=== PATIENT | female | born 1955 | race Caucasian/White ===

== ENCOUNTER 2016-09-05 17:20 | Emergency (ER) | payer OTHER ==
[~2016-09-05] VITALS: Ht 162.6 cm; Wt 83.3 kg
[~2016-09-05 17:20] MED LIST: ACTOS45 MG PO; COMBIVENT RESPIM4 GM IH; COMPAZINE10 MG PO; FOSINOPRIL SODI20 MG PO; LEXAPRO10 MG PO; LISINOPRIL20 MG PO; METFORMIN HCL1000 MG PO; MULTI-DAY VITA1 EACH PO; OSENI 12.5-151 EACH PO; PRILOSEC40 MG PO; REGLAN10 MG PO; ZOFRAN8 MG PO
[2016-09-05 17:59] LABS: HEMATOCRIT 35.6 % (36.0-46.0); MCH 29.5 PG (29.0-34.0); MCHC 32.9 G/DL (30.0-36.0); MCV 89.7 FL (83-99); MEAN PLAT.VOLUME 8.7 uM^3 (9.5-12.4); PLATELET COUNT 426 K/uL (156-360); RBC DIS.WIDTH-CV 13.7 % (11.8-14.6); RBC DIS.WIDTH-SD 43.5 % (39-53); RED BLOOD COUNT 3.97 M/uL (3.80-5.20); WHITE BLOOD COUNT 7.8 K/uL (4.1-10.2)
[2016-09-05 18:09] LABS: CHLORIDE 98 mEq/L (99-109); POTASSIUM 4.4 mEq/L (3.7-5.4); SODIUM 132 mEq/L (136-147)
[2016-09-05 18:10] LABS: GLUCOSE 267 mg/dL (70-99)
[2016-09-05 18:12] LABS: ANION GAP 14 MEQ/L (2-14)
[2016-09-05 18:14] LABS: GFR ESTIMATE (CALCULATED) 38 mL/min/
[2016-09-05] MEDS ORDERED: FERROUS SULFAT325 MG PO (18:15)
[2016-09-05] MEDS ORDERED: GLUCOPHAGE XR750 MG PO (18:15)
[2016-09-05 18:19] LABS: TROP-I INTERPRETATION NEGATIVE; TROPONIN-I < 0.01 ng/mL (0.0-0.30)
[2016-09-05 18:20] LABS: UREA NITROGEN (BUN) 18 mg/dL (9-23)
[2016-09-05 18:42] LABS: D-DIMER ELISA 2.21 mg/L FEU (< 0.57)
[2016-09-05 20:51] LABS: ADD MIUA? YES; BILIRUBIN NEGATIVE; BLOOD TRACE; COLOR YELLOW ((YELLOW)); GLUCOSE (STRIP) NEGATIVE; KETONES TRACE; LEUKOCYTES SMALL; NITRITE POSITIVE; PROTEIN (STRIP) TRACE; UROBILINOGEN 0.2 MG/DL (0.2-1.0)
[2016-09-05 21:28] LABS: SPECIFIC GRAVITY 1.062 (1.000-1.030)
[2016-09-05 21:48] LABS: CASTS PRESENT /LPF; RED BLOOD CELLS 0-5 /HPF (0-5)
[2016-09-05 21:49] LABS: BACTERIA 3+ /HPF; CRYSTALS NONE SEEN; EPITHELIAL CELLS 1+ /HPF; MUCUS NONE SEEN /LPF
[2016-09-05] MEDS ORDERED: CIPRO500 MG PO (22:04)
[2016-09-05 23:10] VITALS: BP 151/73
== END 2016-09-05 23:10 | disposition home or self-care (01) ==
LOC: EME 17:20
PROVIDERS: Emergency Medicine
DX: N39.0 Urinary tract infection, site not specified (principal); E86.0 Dehydration; E11.9 Type 2 diabetes mellitus without complications; J44.9 Chronic obstructive pulmonary disease, unspecified; I10 Essential (primary) hypertension; Z85.118 Personal history of other malignant neoplasm of bronchus and lung; Z87.891 Personal history of nicotine dependence
CPT/HCPCS: 71020; 71275; 74176; 80048; 81003; 84484; 85027; 85379; 87077; 87086; 87186; 93005; 99281; 99285; J0744; J7030

== ENCOUNTER 2016-09-19 12:17 | Observation (INO) | payer OTHER ==
[~2016-09-19] VITALS: Ht 162.6 cm; Wt 82.8 kg
[~2016-09-19 12:17] MED LIST changes: +CIPRO500 MG PO; +FERROUS SULFAT325 MG PO; +GLUCOPHAGE XR750 MG PO
[2016-09-19 13:34] LABS: CHLORIDE 98 mEq/L (99-109); POTASSIUM 4.4 mEq/L (3.7-5.4); SODIUM 133 mEq/L (136-147)
[2016-09-19 13:36] LABS: GLUCOSE 248 mg/dL (70-99); HEMATOCRIT 34.7 % (36.0-46.0); MCH 28.8 PG (29.0-34.0); MCHC 32.9 G/DL (30.0-36.0); MCV 87.6 FL (83-99); MEAN PLAT.VOLUME 9.2 uM^3 (9.5-12.4); PLATELET COUNT 394 K/uL (156-360); RBC DIS.WIDTH-CV 13.9 % (11.8-14.6); RBC DIS.WIDTH-SD 42.9 % (39-53); RED BLOOD COUNT 3.96 M/uL (3.80-5.20); WHITE BLOOD COUNT 9.6 K/uL (4.1-10.2)
[2016-09-19 13:37] LABS: ANION GAP 11 MEQ/L (2-14)
[2016-09-19 13:38] LABS: TOTAL BILIRUBIN 0.6 mg/dL (0.0-1.0)
[2016-09-19 13:40] LABS: ALKALINE PHOSPHATASE 72 IU/L (3-129); GFR ESTIMATE (CALCULATED) 44 mL/min/
[2016-09-19 13:41] LABS: UREA NITROGEN (BUN) 19 mg/dL (9-23)
[2016-09-19 14:32] LABS: LIPASE 40 U/L (1.0-51.0)
[2016-09-19] MEDS ORDERED: LEXAPRO20 MG PO (16:51)
[2016-09-19] MEDS ORDERED: DAILY VITAMIN1 EAC4 PO (16:52)
[2016-09-19] MEDS ORDERED: COMBIVENT RESPIM4 GM IH (16:52)
[2016-09-19 18:47] LABS: ADD MIUA? YES; BILIRUBIN NEGATIVE; BLOOD SMALL; COLOR YELLOW ((YELLOW)); GLUCOSE (STRIP) NEGATIVE; KETONES 5; LEUKOCYTES TRACE; NITRITE NEGATIVE; PROTEIN (STRIP) NEGATIVE; UROBILINOGEN 0.2 MG/DL (0.2-1.0)
[2016-09-19 18:56] LABS: BACTERIA NONE SEEN /HPF; EPITHELIAL CELLS RARE /HPF; HYALINE CASTS 0-5 /LPF; MUCUS NONE SEEN /LPF; RED BLOOD CELLS 0-5 /HPF (0-5); UCUL ADDED? NO; WHITE BLOOD CELLS 0-5 /HPF (0-5)
[2016-09-19 19:04] LABS: D-DIMER ELISA 1.38 mg/L FEU (< 0.57)
[2016-09-19 19:11] LABS: SPECIFIC GRAVITY 1.036 (1.000-1.030)
[2016-09-19 22:10] VITALS: BP 116/57
[2016-09-20 04:23] VITALS: BP 105/58
[2016-09-20 04:27] LABS: POINT-OF-CARE METER ID UU13113700
[2016-09-20 07:39] VITALS: BP 114/56
[2016-09-20 08:13] LABS: POINT-OF-CARE METER ID UU13113700
[2016-09-20 11:08] VITALS: BP 123/58
[2016-09-20 12:38] LABS: POINT-OF-CARE METER ID UU14162513
[2016-09-20 16:31] VITALS: BP 138/63
[2016-09-20 17:11] LABS: POINT-OF-CARE METER ID UU13113831
[2016-09-20 20:00] VITALS: BP 122/57
[2016-09-20 22:37] LABS: POINT-OF-CARE METER ID UU13113700
[2016-09-21 00:13] VITALS: BP 137/95
[2016-09-21 01:59] LABS: POINT-OF-CARE METER ID UU13113700
[2016-09-21 04:09] VITALS: BP 122/56
[2016-09-21 06:24] LABS: POINT-OF-CARE METER ID UU13113700
[2016-09-21 07:11] LABS: ANION GAP 8 MEQ/L (2-14); CHLORIDE 98 MEQ/L (99-109); GFR ESTIMATE (CALCULATED) > 59 mL/min/; GLUCOSE 193 mg/dL (70-99); SAMPLE HEMOLYSIS CHECK 0; SAMPLE ICTERIC CHECK 0; SAMPLE LIPEMIA CHECK 0; SODIUM 134 MEQ/L (136-147); UREA NITROGEN (BUN) 6 mg/dL (9-23)
[2016-09-21 07:18] VITALS: BP 149/66
[2016-09-21 07:18] LABS: POTASSIUM 5.4 MEQ/L (3.7-5.4)
[2016-09-21] MEDS ORDERED: BENTYL20 MG PO (09:07)
[2016-09-21] MEDS ORDERED: ZOFRAN ODT4 MG PO (09:09)
[2016-09-21 10:33] LABS: POINT-OF-CARE METER ID UU13113700
[2016-09-21] MEDS ORDERED: OMEPRAZOLE20 M2 PO (11:18)
[2016-09-21 12:11] VITALS: BP 132/76
== END 2016-09-21 12:30 | disposition home or self-care (01) ==
LOC: EME 12:17 → EDOF 18:10 → 5WEST 18:10 → EDOF 18:10 → 5WEST 20:35
PROVIDERS: Hospitalist; Internal Medicine
DX: E86.0 Dehydration (principal); I95.1 Orthostatic hypotension; C34.81 Malignant neoplasm of overlapping sites of right bronchus and lung; C34.82 Malignant neoplasm of overlapping sites of left bronchus and lung; C78.7 Secondary malignant neoplasm of liver and intrahepatic bile duct; J96.01 Acute respiratory failure with hypoxia; R11.2 Nausea with vomiting, unspecified; R10.13 Epigastric pain; R53.1 Weakness; Z92.21 Personal history of antineoplastic chemotherapy; Z92.3 Personal history of irradiation; E11.9 Type 2 diabetes mellitus without complications; I10 Essential (primary) hypertension; F17.200 Nicotine dependence, unspecified, uncomplicated; Z80.1 Family history of malignant neoplasm of trachea, bronchus and lung; Z82.3 Family history of stroke; Z79.84 Long term (current) use of oral hypoglycemic drugs; Z88.0 Allergy status to penicillin; Z88.8 Allergy status to other drugs, medicaments and biological substances
CPT/HCPCS: 71010; 74177; 80048; 80053; 81003; 82948; 83605; 83690; 85027; 85379; 93005; 94799; 99281; 99285; C9113; G0378; J1650; J1815; J2270; J2405; J7030; J7040

== ENCOUNTER 2016-10-05 16:35 | Observation (INO) | payer OTHER ==
[~2016-10-05] VITALS: Ht 162.6 cm; Wt 79.6 kg
[~2016-10-05 16:35] MED LIST changes: +BENTYL20 MG PO; +DAILY VITAMIN1 EAC4 PO; +LEXAPRO20 MG PO; +OMEPRAZOLE20 M2 PO; +ZOFRAN ODT4 MG PO
[2016-10-05 17:32] LABS: EOSINOPHIL (%) 0.2 % (0-5); HEMATOCRIT 32.7 % (36.0-46.0); IMMATURE GRANULOCYTE (%) 0.2 % (0.0-0.7); IMMATURE GRANULOCYTE COUNT 0.2 K/uL; LYMPHOCYTE COUNT 0.3 K/uL (1.0-2.8); MCH 28.6 PG (29.0-34.0); MCV 86.5 FL (83-99); MEAN PLAT.VOLUME 8.8 uM^3 (9.5-12.4); MONOCYTE (%) 8.6 % (3-12); NEUTROPHIL COUNT 10.3 K/uL (1.8-6.4); PLATELET COUNT 327 K/uL (156-360); RBC DIS.WIDTH-CV 13.7 % (11.8-14.6); RED BLOOD COUNT 3.78 M/uL (3.80-5.20); WHITE BLOOD COUNT 11.7 K/uL (4.1-10.2)
[2016-10-05 17:46] LABS: CHLORIDE 92 mEq/L (99-109); POTASSIUM 4.2 mEq/L (3.7-5.4); SODIUM 131 mEq/L (136-147)
[2016-10-05 17:48] LABS: GLUCOSE 371 mg/dL (70-99)
[2016-10-05 17:49] LABS: ANION GAP 11 MEQ/L (2-14)
[2016-10-05 17:52] LABS: GFR ESTIMATE (CALCULATED) 44 mL/min/
[2016-10-05 17:53] LABS: UREA NITROGEN (BUN) 20 mg/dL (9-23)
[2016-10-05 17:55] LABS: TROP-I INTERPRETATION NEGATIVE; TROPONIN-I 0.01 ng/mL (0.0-0.30)
[2016-10-05 20:13] LABS: ADD MIUA? YES; BILIRUBIN NEGATIVE; BLOOD SMALL; COLOR AMBER ((YELLOW)); GLUCOSE (STRIP) >=500; KETONES 20; LEUKOCYTES TRACE; NITRITE NEGATIVE; PROTEIN (STRIP) 100; SPECIFIC GRAVITY 1.027 (1.000-1.030)
[2016-10-05 20:25] LABS: BACTERIA RARE /HPF; EPITHELIAL CELLS 1+ /HPF; HYALINE CASTS 20-30 /LPF; MUCUS 4+ /LPF; RED BLOOD CELLS 15-20 /HPF (0-5)
[2016-10-05] MEDS ORDERED: OMEPRAZOLE20 MG PO (22:45)
[2016-10-05] MEDS ORDERED: MIRALAX255 GM PO (22:46)
[2016-10-05] MEDS ORDERED: MORPHINE SULFAT15 MG PO (22:46)
[2016-10-05 23:04] LABS: POINT-OF-CARE METER ID UU13113702
[2016-10-05 23:54] VITALS: BP 123/60
[2016-10-06 04:35] VITALS: BP 116/57
[2016-10-06 06:33] LABS: ANION GAP 7 MEQ/L (2-14); CHLORIDE 96 MEQ/L (99-109); SAMPLE HEMOLYSIS CHECK 1; SAMPLE ICTERIC CHECK 0; SAMPLE LIPEMIA CHECK 0; SODIUM 132 MEQ/L (136-147); UREA NITROGEN (BUN) 15 mg/dL (9-23)
[2016-10-06 06:37] LABS: HEMATOCRIT 29.1 % (36.0-46.0); MCH 28.9 PG (29.0-34.0); MCHC 32.6 G/DL (30.0-36.0); MCV 88.4 FL (83-99); MEAN PLAT.VOLUME 9.3 uM^3 (9.5-12.4); PLATELET COUNT 272 K/uL (156-360); RBC DIS.WIDTH-CV 13.9 % (11.8-14.6); RBC DIS.WIDTH-SD 44.9 % (39-53); RED BLOOD COUNT 3.29 M/uL (3.80-5.20)
[2016-10-06 06:38] LABS: WHITE BLOOD COUNT 7.2 K/uL (4.1-10.2)
[2016-10-06 06:44] LABS: TROP-I INTERPRETATION NEGATIVE; TROPONIN-I 0.02 ng/mL (0.0-0.30)
[2016-10-06 06:48] LABS: GLUCOSE 119 mg/dL (70-99)
[2016-10-06 06:50] LABS: GFR ESTIMATE (CALCULATED) > 59 mL/min/; POTASSIUM 3.9 MEQ/L (3.7-5.4)
[2016-10-06 07:32] VITALS: BP 108/60
[2016-10-06 10:38] LABS: TROP-I INTERPRETATION NEGATIVE; TROPONIN-I < 0.01 ng/mL (0.0-0.30)
[2016-10-06] MEDS ORDERED: MORPHINE SULFAT15 MG PO (10:45)
[2016-10-06] MEDS ORDERED: NITROSTAT0.4 MG SL (10:45)
[2016-10-06] MEDS ORDERED: FENTANYL1 EAC5 TD ×2 (10:50→11:01)
[2016-10-06 10:51] VITALS: BP 123/60
[2016-10-06 12:33] LABS: POINT-OF-CARE METER ID UU14162513
== END 2016-10-06 13:43 | disposition home or self-care (01) ==
LOC: EME 16:35 → 5WEST 22:33 → EDOF 22:33 → 5WEST 23:45
PROVIDERS: Family Medicine; Hospitalist; Physician Assistant; Physician Assistant Medical
DX: G89.3 Neoplasm related pain (acute) (chronic) (principal); C34.91 Malignant neoplasm of unspecified part of right bronchus or lung; C34.92 Malignant neoplasm of unspecified part of left bronchus or lung; Z99.81 Dependence on supplemental oxygen; I12.9 Hypertensive chronic kidney disease with stage 1 through stage 4 chronic kidney disease, or unspecified chronic kidney disease; E11.22 Type 2 diabetes mellitus with diabetic chronic kidney disease; N18.3 Chronic kidney disease, stage 3 (moderate); E78.5 Hyperlipidemia, unspecified; E11.65 Type 2 diabetes mellitus with hyperglycemia; J44.9 Chronic obstructive pulmonary disease, unspecified; Z87.891 Personal history of nicotine dependence; Z88.0 Allergy status to penicillin; D64.9 Anemia, unspecified; R00.0 Tachycardia, unspecified
CPT/HCPCS: 71010; 71275; 80048; 81003; 82948; 84484; 85025; 85027; 93005; 94799; 99202; 99281; 99285; G0378; J1650; J1815; J2270; J7030

== ENCOUNTER 2016-11-17 22:09 | Inpatient (IN) | payer OTHER ==
[~2016-11-17] VITALS: Ht 162.6 cm; Wt 74.1 kg
[~2016-11-17 22:09] MED LIST changes: +FENTANYL1 EAC5 TD; +MIRALAX255 GM PO; +MORPHINE SULFAT15 MG PO; +NITROSTAT0.4 MG SL; +OMEPRAZOLE20 MG PO
[2016-11-17 22:52] LABS: HEMATOCRIT 31.8 % (36.0-46.0); MCH 26.7 PG (29.0-34.0); MCHC 31.8 G/DL (30.0-36.0); MCV 84.1 FL (83-99); PLATELET COUNT 404 K/uL (156-360); RED BLOOD COUNT 3.78 M/uL (3.80-5.20); WHITE BLOOD COUNT 9.3 K/uL (4.1-10.2)
[2016-11-17 23:00] LABS: CHLORIDE 92 mEq/L (99-109); POTASSIUM 3.8 mEq/L (3.7-5.4); SODIUM 130 mEq/L (136-147)
[2016-11-17 23:02] LABS: GLUCOSE 246 mg/dL (70-99)
[2016-11-17 23:03] LABS: ANION GAP 11 MEQ/L (2-14)
[2016-11-17 23:04] LABS: TOTAL BILIRUBIN 0.4 mg/dL (0.0-1.0)
[2016-11-17 23:06] LABS: ALKALINE PHOSPHATASE 82 IU/L (3-129); GFR ESTIMATE (CALCULATED) > 59 mL/min/
[2016-11-17 23:07] LABS: UREA NITROGEN (BUN) 11 mg/dL (9-23)
[2016-11-17 23:08] LABS: DIRECT BILIRUBIN 0.3 mg/dL (0.0-0.3); TROP-I INTERPRETATION NEGATIVE; TROPONIN-I < 0.01 ng/mL (0.0-0.30)
[2016-11-17 23:09] LABS: LIPASE 22 U/L (1.0-51.0)
[2016-11-18 00:48] LABS: ADD MIUA? YES; BILIRUBIN NEGATIVE; BLOOD NEGATIVE; COLOR YELLOW ((YELLOW)); GLUCOSE (STRIP) 150; KETONES 5; LEUKOCYTES MODERATE; NITRITE NEGATIVE; PROTEIN (STRIP) 30; SPECIFIC GRAVITY 1.021 (1.000-1.030); UROBILINOGEN 0.2 MG/DL (0.2-1.0)
[2016-11-18 00:55] LABS: BACTERIA 2+ /HPF; EPITHELIAL CELLS RARE /HPF; MUCUS TRACE /LPF; RED BLOOD CELLS 0-5 /HPF (0-5); UCUL ADDED? YES; WHITE BLOOD CELLS 30-40 /HPF (0-5)
[2016-11-18] MEDS ORDERED: ZOFRAN ODT8 MG PO (01:01)
[2016-11-18] MEDS ORDERED: CARDIZEM30 MG PO (01:04)
[2016-11-18] MEDS ORDERED: METOCLOPRAMIDE10 MG PO (01:04)
[2016-11-18 05:18] VITALS: BP 191/81
[2016-11-18 06:47] VITALS: BP 140/64
[2016-11-18 08:42] LABS: HEMATOCRIT 32.3 % (36.0-46.0); MCH 26.4 PG (29.0-34.0); MCHC 30.7 G/DL (30.0-36.0); MCV 86.1 FL (83-99); MEAN PLAT.VOLUME 9.2 uM^3 (9.5-12.4); PLATELET COUNT 434 K/uL (156-360); RBC DIS.WIDTH-SD 47.6 % (39-53); RED BLOOD COUNT 3.75 M/uL (3.80-5.20); WHITE BLOOD COUNT 10.2 K/uL (4.1-10.2)
[2016-11-18 08:49] LABS: ANION GAP 10 MEQ/L (2-14); CHLORIDE 92 MEQ/L (99-109); GFR ESTIMATE (CALCULATED) > 59 mL/min/; GLUCOSE 192 mg/dL (70-99); POTASSIUM 3.7 MEQ/L (3.7-5.4); SAMPLE HEMOLYSIS CHECK 0; SAMPLE ICTERIC CHECK 0; SAMPLE LIPEMIA CHECK 0; SODIUM 130 MEQ/L (136-147); UREA NITROGEN (BUN) 9 mg/dL (9-23)
[2016-11-18 15:57] VITALS: BP 135/65
[2016-11-18 22:58] VITALS: BP 145/65
[2016-11-19 06:36] LABS: EOSINOPHIL (%) 1.4 % (0-5); EOSINOPHIL COUNT 0.1 K/uL (0-0.3); HEMATOCRIT 28.2 % (36.0-46.0); IMMATURE GRANULOCYTE (%) 1.1 % (0.0-0.7); IMMATURE GRANULOCYTE COUNT 0.1 K/uL; INSTRUMENT ABS NEUTROPHIL CT 7.5 K/uL; LYMPHOCYTE COUNT 0.5 K/uL (1.0-2.8); MCH 26.2 PG (29.0-34.0); MCHC 30.9 G/DL (30.0-36.0); MCV 84.9 FL (83-99); MEAN PLAT.VOLUME 8.8 uM^3 (9.5-12.4); MONOCYTE (%) 11.8 % (3-12); MONOCYTE COUNT 1.1 K/uL (0-0.8); NEUTROPHIL (%) 80.5 % (45-76); NEUTROPHIL COUNT 7.5 K/uL (1.8-6.4); PLATELET COUNT 320 K/uL (156-360); RBC DIS.WIDTH-CV 15.1 % (11.8-14.6); RBC DIS.WIDTH-SD 46.5 % (39-53); RED BLOOD COUNT 3.32 M/uL (3.80-5.20); WHITE BLOOD COUNT 9.3 K/uL (4.1-10.2)
[2016-11-19 06:56] LABS: ANION GAP 7 MEQ/L (2-14); CHLORIDE 99 MEQ/L (99-109); GFR ESTIMATE (CALCULATED) > 59 mL/min/; GLUCOSE 161 mg/dL (70-99); POTASSIUM 3.8 MEQ/L (3.7-5.4); SAMPLE HEMOLYSIS CHECK 0; SAMPLE ICTERIC CHECK 0; SAMPLE LIPEMIA CHECK 0; SODIUM 134 MEQ/L (136-147); UREA NITROGEN (BUN) 6 mg/dL (9-23)
[2016-11-19 07:04] VITALS: BP 133/61
[2016-11-19 15:26] VITALS: BP 151/66
[2016-11-19 22:58] VITALS: BP 129/58
[2016-11-20 06:54] LABS: EOSINOPHIL (%) 2.8 % (0-5); EOSINOPHIL COUNT 0.2 K/uL (0-0.3); HEMATOCRIT 25.5 % (36.0-46.0); IMMATURE GRANULOCYTE (%) 1.5 % (0.0-0.7); IMMATURE GRANULOCYTE COUNT 0.1 K/uL; INSTRUMENT ABS NEUTROPHIL CT 6.1 K/uL; LYMPHOCYTE COUNT 0.5 K/uL (1.0-2.8); MCH 26.6 PG (29.0-34.0); MCHC 31.4 G/DL (30.0-36.0); MCV 84.7 FL (83-99); MEAN PLAT.VOLUME 9.6 uM^3 (9.5-12.4); MONOCYTE COUNT 1.1 K/uL (0-0.8); NEUTROPHIL (%) 75.9 % (45-76); NEUTROPHIL COUNT 6.1 K/uL (1.8-6.4); PLATELET COUNT 312 K/uL (156-360); RBC DIS.WIDTH-CV 15.4 % (11.8-14.6); RBC DIS.WIDTH-SD 46.8 % (39-53); RED BLOOD COUNT 3.01 M/uL (3.80-5.20); WHITE BLOOD COUNT 8.1 K/uL (4.1-10.2)
[2016-11-20 07:11] LABS: ANION GAP 10 MEQ/L (2-14); CHLORIDE 96 MEQ/L (99-109); GFR ESTIMATE (CALCULATED) > 59 mL/min/; GLUCOSE 225 mg/dL (70-99); POTASSIUM 3.5 MEQ/L (3.7-5.4); SAMPLE HEMOLYSIS CHECK 0; SAMPLE ICTERIC CHECK 0; SAMPLE LIPEMIA CHECK 0; SODIUM 132 MEQ/L (136-147); UREA NITROGEN (BUN) 7 mg/dL (9-23)
[2016-11-20 07:27] VITALS: BP 140/71
[2016-11-20 15:57] VITALS: BP 112/61
[2016-11-20 22:25] VITALS: BP 122/57
[2016-11-21 04:19] VITALS: BP 112/70
[2016-11-21 07:31] VITALS: BP 126/64
[2016-11-21 15:23] VITALS: BP 140/66
[2016-11-21 23:45] VITALS: BP 128/78
[2016-11-22 08:17] VITALS: BP 141/61
[2016-11-22 08:51] LABS: EOSINOPHIL (%) 1.2 % (0-5); EOSINOPHIL COUNT 0.2 K/uL (0-0.3); HEMATOCRIT 29.6 % (36.0-46.0); IMMATURE GRANULOCYTE COUNT 0.1 K/uL; INSTRUMENT ABS NEUTROPHIL CT 10.7 K/uL; LYMPHOCYTE COUNT 0.9 K/uL (1.0-2.8); MCH 25.7 PG (29.0-34.0); MCHC 30.4 G/DL (30.0-36.0); MCV 84.6 FL (83-99); MEAN PLAT.VOLUME 9.4 uM^3 (9.5-12.4); MONOCYTE (%) 8.8 % (3-12); MONOCYTE COUNT 1.2 K/uL (0-0.8); NEUTROPHIL (%) 81.6 % (45-76); NEUTROPHIL COUNT 10.7 K/uL (1.8-6.4); RBC DIS.WIDTH-CV 15.9 % (11.8-14.6); RBC DIS.WIDTH-SD 47.8 % (39-53)
[2016-11-22 08:52] LABS: PLATELET COUNT 457 K/uL (156-360); WHITE BLOOD COUNT 13.1 K/uL (4.1-10.2)
[2016-11-22 09:00] LABS: ANION GAP 12 MEQ/L (2-14); CHLORIDE 91 MEQ/L (99-109); GFR ESTIMATE (CALCULATED) > 59 mL/min/; GLUCOSE 211 mg/dL (70-99); POTASSIUM 3.8 MEQ/L (3.7-5.4); SAMPLE HEMOLYSIS CHECK 0; SAMPLE ICTERIC CHECK 0; SAMPLE LIPEMIA CHECK 0; SODIUM 129 MEQ/L (136-147); UREA NITROGEN (BUN) 10 mg/dL (9-23)
[2016-11-22 15:52] VITALS: BP 121/61
[2016-11-22 22:43] VITALS: BP 123/59
[2016-11-23 07:51] VITALS: BP 140/61
[2016-11-23 16:29] VITALS: BP 106/61
[2016-11-23 21:04] VITALS: BP 104/51
[2016-11-23 23:30] VITALS: BP 139/65
[2016-11-24 05:25] VITALS: BP 147/70
[2016-11-24 05:28] VITALS: BP 147/70
[2016-11-24 07:00] VITALS: BP 102/54
[2016-11-24 07:50] LABS: EOSINOPHIL (%) 0.4 % (0-5); EOSINOPHIL COUNT 0.1 K/uL (0-0.3); IMMATURE GRANULOCYTE (%) 1.4 % (0.0-0.7); IMMATURE GRANULOCYTE COUNT 0.2 K/uL; INSTRUMENT ABS NEUTROPHIL CT 13.6 K/uL; LYMPHOCYTE COUNT 0.4 K/uL (1.0-2.8); MCH 26.1 PG (29.0-34.0); MCHC 30.7 G/DL (30.0-36.0); MCV 84.8 FL (83-99); MEAN PLAT.VOLUME 9.4 uM^3 (9.5-12.4); MONOCYTE COUNT 1.4 K/uL (0-0.8); NEUTROPHIL (%) 86.7 % (45-76); NEUTROPHIL COUNT 13.6 K/uL (1.8-6.4); PLATELET COUNT 358 K/uL (156-360); WHITE BLOOD COUNT 15.6 K/uL (4.1-10.2)
[2016-11-24 08:52] LABS: ANION GAP 13 MEQ/L (2-14); CHLORIDE 91 MEQ/L (99-109); GFR ESTIMATE (CALCULATED) > 59 mL/min/; GLUCOSE 290 mg/dL (70-99); POTASSIUM 4.3 MEQ/L (3.7-5.4); SAMPLE HEMOLYSIS CHECK 0; SAMPLE ICTERIC CHECK 0; SAMPLE LIPEMIA CHECK 0; SODIUM 128 MEQ/L (136-147); UREA NITROGEN (BUN) 14 mg/dL (9-23)
[2016-11-24 15:37] VITALS: BP 101/54
[2016-11-24 22:18] VITALS: BP 132/60
[2016-11-25 07:25] VITALS: BP 117/56
[2016-11-25 11:04] LABS: HEMATOCRIT 24.2 % (36.0-46.0); MCH 26.6 PG (29.0-34.0); MCHC 31.4 G/DL (30.0-36.0); MCV 84.6 FL (83-99); MEAN PLAT.VOLUME 9.6 uM^3 (9.5-12.4); PLATELET COUNT 327 K/uL (156-360); RBC DIS.WIDTH-CV 16.5 % (11.8-14.6); RBC DIS.WIDTH-SD 50.6 % (39-53); RED BLOOD COUNT 2.86 M/uL (3.80-5.20); WHITE BLOOD COUNT 15.6 K/uL (4.1-10.2)
[2016-11-25 11:25] LABS: ANION GAP 9 MEQ/L (2-14); CHLORIDE 92 MEQ/L (99-109); GFR ESTIMATE (CALCULATED) > 59 mL/min/; GLUCOSE 234 mg/dL (70-99); POTASSIUM 4.4 MEQ/L (3.7-5.4); SAMPLE HEMOLYSIS CHECK 0; SAMPLE ICTERIC CHECK 0; SAMPLE LIPEMIA CHECK 0; SODIUM 126 MEQ/L (136-147); UREA NITROGEN (BUN) 13 mg/dL (9-23)
[2016-11-25 16:56] VITALS: BP 129/61
[2016-11-25 20:48] LABS: POINT-OF-CARE METER ID UU13113725
[2016-11-26 05:43] LABS: POINT-OF-CARE METER ID UU13113725
[2016-11-26 06:45] VITALS: BP 115/56
[2016-11-26 08:46] LABS: HEMATOCRIT 27.5 % (36.0-46.0); MCH 26.6 PG (29.0-34.0); MCHC 30.9 G/DL (30.0-36.0); MCV 85.9 FL (83-99); MEAN PLAT.VOLUME 9.3 uM^3 (9.5-12.4); PLATELET COUNT 404 K/uL (156-360); RBC DIS.WIDTH-CV 16.8 % (11.8-14.6); RBC DIS.WIDTH-SD 51.8 % (39-53)
[2016-11-26 08:47] LABS: WHITE BLOOD COUNT 23.4 K/uL (4.1-10.2)
[2016-11-26 09:02] LABS: ALKALINE PHOSPHATASE 75 IU/L (3-129); ANION GAP 15 MEQ/L (2-14); CHLORIDE 92 MEQ/L (99-109); GFR ESTIMATE (CALCULATED) > 59 mL/min/; GLUCOSE 329 mg/dL (70-99); POTASSIUM 4.8 MEQ/L (3.7-5.4); SAMPLE HEMOLYSIS CHECK 0; SAMPLE ICTERIC CHECK 0; SAMPLE LIPEMIA CHECK 0; SODIUM 127 MEQ/L (136-147); TOTAL BILIRUBIN 0.4 MG/DL (0.0-1.0); UREA NITROGEN (BUN) 20 mg/dL (9-23)
[2016-11-26 15:29] VITALS: BP 137/63
[2016-11-26 16:39] LABS: POINT-OF-CARE METER ID UU13113725
[2016-11-27 05:46] VITALS: BP 00/00
== END 2016-11-27 07:00 | DRG 689 ==
LOC: EME → EDBD 22:09 → EME 22:09 → 5EAST 11-18 03:36 → EDOF 11-18 03:36 → 5EAST 11-18 04:56
PROVIDERS: Emergency Medicine; Hospitalist; Internal Medicine
PROC: 5A09357 Assistance with Respiratory Ventilation, Less than 24 Consecutive Hours, Continuous Positive Airway Pressure (ICD-10-PCS; principal; 2016-11-26)
DX: N39.0 Urinary tract infection, site not specified (principal); K52.9 Noninfective gastroenteritis and colitis, unspecified; R62.7 Adult failure to thrive; E86.0 Dehydration; J96.10 Chronic respiratory failure, unspecified whether with hypoxia or hypercapnia; I10 Essential (primary) hypertension; E11.9 Type 2 diabetes mellitus without complications; J96.11 Chronic respiratory failure with hypoxia; B96.1 Klebsiella pneumoniae [K. pneumoniae] as the cause of diseases classified elsewhere; J18.9 Pneumonia, unspecified organism; E87.1 Hypo-osmolality and hyponatremia; D63.8 Anemia in other chronic diseases classified elsewhere; J44.9 Chronic obstructive pulmonary disease, unspecified; Z92.21 Personal history of antineoplastic chemotherapy; E78.4 Other hyperlipidemia; Z71.6 Tobacco abuse counseling; R00.0 Tachycardia, unspecified; C34.90 Malignant neoplasm of unspecified part of unspecified bronchus or lung; Z51.5 Encounter for palliative care; R41.0 Disorientation, unspecified; R44.3 Hallucinations, unspecified
CPT/HCPCS: 70553; 71010; 71020; 71275; 72132; 74177; 80048; 80053; 80076; 80202; 81003; 82948; 83605; 83690; 84484; 85025; 85027; 86850; 86900; 86901; 86920; 87040; 87077; 87086; 87186; 87801; 93005; 93970; 94640; 94640 76; 94799; 97530 GO; 99202; 99281; 99285; J0692; J1630; J1650; J1815; J1940; J1956; J2270; J2405; J3370; J7030; J7050; Q0167